=== PATIENT | female | born 1975 | race African-American/Black ===

== ENCOUNTER 2017-11-24 13:39 | Emergency (ER) | payer OTHER ==
[~2017-11-24] VITALS: Ht 167.6 cm; Wt 85.7 kg
[~2017-11-24 13:39] MED LIST: ABILIFY10 MG PO; AMITIZA8 MCG PO; CYMBALTA30 MG PO; DILAUDID2 M1 PO; HUMIRA40 MG/0.1 SQ; LASIX 20 MG TAB20 MG PO; LEVOTHYROXINE 0.15MG PO; MIRALAX17 GM PO; MYRBETRIQ50 MG PO; NEURONTIN600 MG PO; NORCO 5-325 TA1 EACH PO; OPANA ER30 M1 PO; OTEZLA30 MG PO; OXAYDO5 MG PO; OXYCODONE-ACET1 EACH PO; PEPCID20 MG PO; PROAIR HFA8.5 GM; TOPAMAX 100 MG100 MG PO; TRAMADOL 50 MG50 MG PO; TRAZODONE HCL50 MG PO; TRIAMCINOLONE A80 G2 TOP; VITAMIN D350000 UNIT PO; XARELTO20 MG PO; ZANTAC 150MG T150 MG PO
[2017-11-24] MEDS ORDERED: ELIQUIS2.5 MG PO (14:08)
[2017-11-24] MEDS ORDERED: OXYCODONE HCL 55 MG PO (15:13)
[2017-11-24] MEDS ORDERED: DOXYCYCLINE 10100 MG PO (15:13)
[2017-11-24 15:19] VITALS: BP 144/96
== END 2017-11-24 15:21 | disposition home or self-care (01) ==
LOC: ER 13:39
DX: L02.214 Cutaneous abscess of groin (principal); F17.210 Nicotine dependence, cigarettes, uncomplicated; Z90.89 Acquired absence of other organs; Z90.710 Acquired absence of both cervix and uterus; Z88.5 Allergy status to narcotic agent; Z88.6 Allergy status to analgesic agent; Z88.8 Allergy status to other drugs, medicaments and biological substances

== ENCOUNTER 2017-12-02 02:03 | Emergency (ER) | payer OTHER ==
[~2017-12-02] VITALS: Ht 167.6 cm; Wt 85.7 kg
[~2017-12-02 02:03] MED LIST changes: +DOXYCYCLINE 10100 MG PO; +ELIQUIS2.5 MG PO; +OXYCODONE HCL 55 MG PO
[2017-12-02 02:15] VITALS: BP 162/111
[2017-12-02] MEDS ORDERED: OXYBUTYNIN 5 MG5 M2 PO (02:21)
[2017-12-02] MEDS ORDERED: ADDERALL 10 MG10 MG PO (02:22)
[2017-12-02] MEDS ORDERED: NEXIUM40 MG PO (02:22)
[2017-12-02] MEDS ORDERED: NORFLEX100 MG PO (02:31)
[2017-12-02] MEDS ORDERED: TRAMADOL 50 MG50 MG PO (02:31)
== END 2017-12-02 02:55 | disposition home or self-care (01) ==
LOC: ER 02:03
DX: M54.6 Pain in thoracic spine (principal); M62.838 Other muscle spasm; L40.50 Arthropathic psoriasis, unspecified; F17.210 Nicotine dependence, cigarettes, uncomplicated; Z90.89 Acquired absence of other organs; Z90.710 Acquired absence of both cervix and uterus; Z88.5 Allergy status to narcotic agent; Z88.6 Allergy status to analgesic agent; Z88.8 Allergy status to other drugs, medicaments and biological substances

== ENCOUNTER 2018-02-03 14:58 | Emergency (ER) | payer OTHER ==
[~2018-02-03] VITALS: Ht 167.6 cm; Wt 90.7 kg
[~2018-02-03 14:58] MED LIST changes: +ADDERALL 10 MG10 MG PO; +NEXIUM40 MG PO; +NORFLEX100 MG PO; +OXYBUTYNIN 5 MG5 M2 PO
[2018-02-03] MEDS ORDERED: HYDROCODONE-AP1 EAC6 PO (15:22)
[2018-02-03 15:56] VITALS: BP 158/108
== END 2018-02-03 15:56 | disposition home or self-care (01) ==
LOC: ER 14:58
DX: S61.301A Unspecified open wound of left index finger with damage to nail, initial encounter (principal); F17.210 Nicotine dependence, cigarettes, uncomplicated; F10.99 Alcohol use, unspecified with unspecified alcohol-induced disorder; Z88.6 Allergy status to analgesic agent; Z88.8 Allergy status to other drugs, medicaments and biological substances; W22.8XXA Striking against or struck by other objects, initial encounter; Y93.89 Activity, other specified; Y92.89 Other specified places as the place of occurrence of the external cause; Y99.8 Other external cause status

== ENCOUNTER 2018-05-29 11:19 | Emergency (ER) | payer OTHER ==
[~2018-05-29] VITALS: Ht 167.6 cm; Wt 93.9 kg
[~2018-05-29 11:19] MED LIST changes: +HYDROCODONE-AP1 EAC6 PO
[2018-05-29] MEDS ORDERED: DEXILANT30 MG PO (11:50)
[2018-05-29 11:57] LABS: ABSOLUTE NEUTROPHILS 4.4 thou/uL (1.4-8.2); BASOPHILS 0.6 % (0.0-2.0); EOSINOPHILS 0.4 % (0.0-3.0); HEMATOCRIT 41.4 % (37.0-47.0); HEMOGLOBIN 13.2 gm/dL (12.0-15.0); LYMPHOCYTES 42.7 % (24.0-44.0); MCH 24.9 pg (26.0-34.0); MCHC 31.8 g/dL (28.0-37.0); MCV 78.3 fL (80.0-100.0); MONOCYTES 5.7 % (1.0-8.0); PLATELET COUNT 198 thou/uL (150-400); POLYS 50.6 % (36.0-66.0); RBC 5.29 mil/uL (4.20-5.00); RDW 15.8 % (10.5-14.5); WBC 8.6 thou/uL (4.0-11.0)
[2018-05-29 11:57] LABS: URINE BILIRUBIN NEGATIVE (Negative); URINE BLOOD NEGATIVE (Negative); URINE CLARITY CLEAR; URINE COLOR YELLOW; URINE GLUCOSE-RANDOM* NEGATIVE (Negative); URINE KETONES NEGATIVE (Negative); URINE LEUKOCYTES-REFLEX NEGATIVE (Negative); URINE NITRITE-REFLEX NEGATIVE (Negative); URINE PROTEIN (DIPSTICK) NEGATIVE (Negative); URINE SPECIFIC GRAVITY 1.015 (1.005-1.035); URINE UROBILINOGEN 0.2 E.U./dl (0.2-1.0)
[2018-05-29 12:00] LABS: ANION GAP 9 mmol/L (7-16); BUN 7 mg/dL (7-18); CALCIUM 8.7 mg/dL (8.5-10.1); CHLORIDE 110 mmol/L (98-107); CO2 25 mmol/L (21-32); CREATININE 1.1 mg/dL (0.6-1.0); GLUCOSE 107 mg/dL (74-106); POTASSIUM 3.7 mmol/L (3.5-5.1); SODIUM 144 mmol/L (136-145)
[2018-05-29 12:06] LABS: ALBUMIN 3.9 g/dL (3.4-5.0); DIRECT BILIRUBIN < 0.1 mg/dL (<0.1-0.3); LIPASE 195 U/L (73-393); SGOT 19 U/L (15-37); SGPT 24 U/L (30-65); TOTAL BILIRUBIN 0.2 mg/dL (<0.1-1.0); TOTAL PROTEIN 7.6 g/dL (6.4-8.2)
[2018-05-29] MEDS ORDERED: OXYCODONE HCL 55 MG PO (14:10)
== END 2018-05-29 14:37 | disposition home or self-care (01) ==
LOC: ER 11:19
PROVIDERS: Emergency Medicine
DX: R10.9 Unspecified abdominal pain (principal); R30.0 Dysuria; F17.210 Nicotine dependence, cigarettes, uncomplicated; Z90.89 Acquired absence of other organs; Z90.710 Acquired absence of both cervix and uterus; Z88.5 Allergy status to narcotic agent; Z88.8 Allergy status to other drugs, medicaments and biological substances; Z88.6 Allergy status to analgesic agent

== ENCOUNTER 2020-08-27 08:32 | Emergency (ER) | payer OTHER ==
[~2020-08-27] VITALS: Ht 167.6 cm; Wt 65.8 kg
[~2020-08-27 08:32] MED LIST changes: +DEXILANT30 MG PO
[2020-08-27 08:35] VITALS: BP 168/103
== END 2020-08-27 09:25 ==
LOC: ER 08:32
DX: Z00.00 Encounter for general adult medical examination without abnormal findings (principal); F41.9 Anxiety disorder, unspecified; F17.210 Nicotine dependence, cigarettes, uncomplicated; Z90.710 Acquired absence of both cervix and uterus; Z79.899 Other long term (current) drug therapy; Z88.5 Allergy status to narcotic agent; Z88.8 Allergy status to other drugs, medicaments and biological substances